=== PATIENT | male | born 1990 | race Caucasian/White ===

== ENCOUNTER 2022-06-22 10:21 | Emergency (ER) | payer OTHER ==
[~2022-06-22] VITALS: Ht 162.6 cm; Wt 88.5 kg
[2022-06-22 10:21] VITALS: BP_SYST 134
--- NOTE | 2022-06-22 10:22 | NUR ---
Patient triaged and placed in waiting room. VSS and patient appears in no acute distress at this time. Accompanied by MOTHER, awaiting available bed, and MD notified of need for MSE.
--- NOTE | 2022-06-22 11:20 | NUR ---
BROUGHT BACK TO BED IN [facility], DR BENITEZ AT BEDSIDE FOR EVALUATION
--- NOTE | 2022-06-22 11:55 | NUR ---
ER at bedside examining patient.
[2022-06-22] MEDS ORDERED: IBUPROFEN 600 MG TABLET PO ONE (12:00)
--- NOTE | 2022-06-22 12:00 | NUR ---
31MALSallie presents to the emergency room complaint of acute pain in the left ankle. Pain has been present for approximately 1 day. Patient states that he was helping his mother with a walker when it accidentally tripped and landed on his left ankle. Patient has not taken anything for pain. Complains of pain and swelling to the lateral aspect of the ankle. No numbness no weakness
[2022-06-22] MEDS ORDERED: IBUP-1969 PO (12:09)
--- NOTE | 2022-06-22 12:19 | NUR ---
Patient given written and verbal discharge instructions and verbalizes understanding. ER MD discussed with patient the results and treatment provided. Patient in stable condition. ID arm band removed. Rx of IBUPROFEN given. Patient educated on pain management and to follow up with PMD. Opportunity for questions provided and answered. Medication side effect fact sheet provided.
[2022-06-22 12:20] VITALS: BP_SYST 134
== END 2022-06-22 12:19 | disposition home or self-care (01) ==
LOC: SED 10:21
DX: S93.402A Sprain of unspecified ligament of left ankle, initial encounter (principal); Z88.8 Allergy status to other drugs, medicaments and biological substances; Z79.899 Other long term (current) drug therapy; W01.0XXA Fall on same level from slipping, tripping and stumbling without subsequent striking against object, initial encounter; Y93.89 Activity, other specified; Y92.89 Other specified places as the place of occurrence of the external cause; Y99.8 Other external cause status
CPT/HCPCS: 99283